=== PATIENT | male | born 1960 | race Caucasian/White ===

== ENCOUNTER 2021-08-16 06:56 | Emergency (ER) | payer MEDICAID, SELFPAY ==
--- NOTE | ~2021-08-16 | CT_ITS ---
EXAMINATION: CT ABDOMEN AND PELVIS WITHOUT CONTRAST CLINICAL INFORMATION: Constipation. Lower abdominal pain. COMPARISON: None TECHNIQUE: Multidetector volumetric imaging was performed from the superior aspect of the liver through the pubic symphysis. Sagittal and coronal reformatted images were obtained on the technologist's workstation. This CT examination was performed using dose optimization techniques as appropriate, variously including the following: *Automated exposure control *Adjustment of mA and/or kV according to patient size (this includes techniques or standardized protocols for targeted exams where dose is matched to indication/reason for exam; i.e. extremities or head) *Use of iterative reconstruction technique DLP: 512 mGy-cm FINDINGS: LUNG BASES: The visualized lung bases are unremarkable. LIVER, GALLBLADDER, AND BILIARY TREE: The liver is normal in size, shape, and attenuation. No focal hepatic lesion or biliary ductal dilatation is present. The gallbladder is filled with stones and sludge. No wall thickening or pericholecystic fluid. There is some irregularity of the gallbladder wall suggestive of possible partial calcification. PANCREAS: Unremarkable. SPLEEN: Unremarkable. ADRENAL GLANDS: Unremarkable. KIDNEYS AND URETERS: The kidneys are normal in size, shape, and attenuation. No hydronephrosis, hydroureter, or calculi seen. No perinephric stranding. BLADDER: Unremarkable. GASTROINTESTINAL TRACT: The stomach is unremarkable. Normal caliber of the small bowel. There is no obstruction. No colonic wall thickening or acute inflammation. No significant abnormal colonic stool burden. Normal appendix. No free air or free fluid. ABDOMINAL WALL: No significant hernia is appreciated. LYMPH NODES: Normal. VASCULAR: Normal caliber aorta with mild atherosclerotic calcification. PELVIC VISCERA: The prostate and seminal vesicles are unremarkable. OSSEOUS STRUCTURES: Are degenerative changes throughout the spine. No prior for comparison. Bilateral L5 pars defects with grade 1 anterolisthesis of L5 on S1 and vacuum disc phenomenon has a chronic appearance. There is mild height loss of the T9 vertebral body with irregularity of the superior endplate. This is of uncertain chronicity. CT/CT abdomen pelvis wo con IMPRESSION: No acute finding in the abdomen or pelvis. No inflammatory change. No abnormal significant colonic stool burden. Mild compression deformity of the T9 vertebral body with superior endplate irregularity. This is of uncertain chronicity. This could represent acute or subacute compression deformity. Cholelithiasis with gallbladder sludge. Some irregularity of the wall is also suggested. No acute inflammatory changes of the gallbladder are seen. This could be evaluated with nonemergent right upper quadrant ultrasound.
[2021-08-16 07:17] VITALS: BP 126/85; PULSE 97; RESP 19; TEMP 36.6; O2SAT 99; BMI 24.4
--- NOTE | 2021-08-16 08:03 | ED.ALCOHOL ---
HPI - Alcohol General Chief Complaint: General Medical Stated Complaint: seeking detox Time Seen by Provider: 08/16/21 08:02 Source: patient Mode of arrival: ambulatory Limitations: no limitations History of Present Illness MD complaint: alcohol dependence and desires rehab Last drink: Days (ago) Chronic alcohol use: Yes Previous visits for alcohol intoxication: No Recent trauma: No Associated symptoms: other (constipation, and running out of oxycodone - needs detox for both) Treatments prior to arrival: none Related Data Previous Rx's Medication Instructions Recorded buprenorphine 8 mg-naloxone 2 mg 1 film BUCCAL DAILY 4 Days #4 ea 08/16/21 sublingual film (Suboxone) Allergies Allergy/AdvReac Type Severity Reaction Status Date / Time No Known Allergies Allergy Verified 08/16/21 08:02 Review of Systems Review of Systems: Constitutional : No Weight loss, No Fever, No Chills, No Fatigue, No Malaise ENT/Mouth : No sore throat, No Rhinorrhea Eyes: No Eye Pain, No Swelling, No Redness Cardiovascular : No Chest Pain, No SOB, No Dyspnea on Exertion, No Orthopnea, No Edema, No Palpitations Respiratory : No Cough, No Sputum, No Wheezing Gastrointestinal : No Nausea, No Vomiting, No Diarrhea, pos Constipation, No abdominal Pain, No Hematochezia, No Melena Genitourinary : No Dysuria, No Urinary Frequency, No Hematuria, Musculoskeletal : No joint pain, No Myalgias, No Joint Swelling Skin : No Skin Lesions, No rash Neuro : No Weakness, No Numbness, No Dizziness, No Headache Psych : pos Anxiety/Panic, No Depression Heme/Lymph: No Bruising, No Bleeding,No Lymphadenopathy Endocrine : No Polyuria, No Polydipsia All other systems reviewed and are negative [facility] Past Medical History Attestation statement: The following information was validated with the patient. Medical History Alcoholism Compression fracture of lumbar vertebra Opiate dependence Rotator cuff injury TBI (traumatic brain injury) Social History Social History (Updated 08/16/21 @ 08:32 by Cinda Samayoa DO) Alcohol intake: current Patient Tobacco Use Status: Tobacco use Unknown Substance Use Type: Opiates and Prescription Drugs Advance Directives: No Physical Exam Vital Signs: Vital Signs: Last Vital Signs Temp 98 F 08/16/21 07:17 Pulse 97 08/16/21 07:17 Resp 19 08/16/21 07:17 BP 126/85 08/16/21 07:17 Pulse Ox 99 08/16/21 07:17 Body Mass Index 24.4 Appearance: Alert. Oriented X3. No acute distress. Anxious Eyes: Pupils equal, round and reactive to light. ENT: Pharynx normal. Neck: Normal inspection. Neck supple. CVS: Normal heart rate and rhythm. Pulses normal. Respiratory: No respiratory distress. Breath sounds normal. Abdomen: Soft and nontender. Skin: Skin warm and dry. Normal skin color. Normal skin turgor. Extremities: No lower extremity edema. No calf ttp Neuro: Oriented X 3. No motor deficit. No sensory deficit. Course Course Course Narrative: Patient placed in physician observation at 1205pm. The indication for observation is that the patient needs more time to for possible detox placement for opiate and ETOH abuse. At this time the patient is well developed well nourished, lungs clear, CV RRR, abd nontender, neuro is intact. no signs of withdrawal at this time Physician observation ended at 309pm Patient seen and cleared by recovery team Plan is to follow up as outpatient. NAD, lungs clear, CV RRR, Abd nontender, Neuro intact. Disposition is for home. Detox will follow up with MDM - Alcohol MDM Narrative Medical decision making narrative: 61 yo male from [place] recently 2 years ago suffered a fall and was prescribed for 2 years 30mg oxy and 6mg xanax a day post trauma - he now is running out and notes dependence, also has drinking problem unsure if he is looking for detox. He c/o chronic constipation and lower abdominal pain. Will obtain labs and CT scan to r/o mass if negative will refer to recovery coaches. Lab Data Result diagrams: 08/16/21 09:04 08/16/21 09:04 Labs: Lab Results 08/16/21 08/16/21 08/16/21 Range/Units 08:20 09:04 09:04 WBC 5.9 (4.8-10.8) X10*3/uL RBC 3.14 L (4.60-5.80) X10*6/uL Hgb 11.4 L (14.0-18.0) g/dl Hct 33.3 L (42.0-52.0) % MCV 106.1 H (80.0-98.0) fL MCH 36.3 H (27.0-33.0) pg MCHC 34.2 (31.0-36.0) g/dl RDW 14.9 (11.0-16.0) % Plt Count 182 (160-400) X10*3/uL MPV 9.7 (9.4-12.4) fL Immature Gran % (Auto) 0.2 (0.0-0.4) % Neut % (Auto) 54.9 (45-73) % Lymph % (Auto) 35.1 (20-40) % [place] % (Auto) 8.0 (2-11) % Eos % (Auto) 1.5 (0-4) % Baso % (Auto) 0.3 (0-2) % Lymph # (Auto) 2.1 (1.2-4.9) X10*3/uL [place] # (Auto) 0.5 (0.1-1.2) X10*3/uL Eos # (Auto) 0.1 (0.0-0.4) X10*3/uL Baso # (Auto) 0.0 (0.0-0.2) X10*3/uL Abs Immat Gran (auto) 0.01 (0.00-0.03) X10*3/uL Absolute Neuts (auto) 3.23 (2.0-8.3) x10*3/uL Absolute Nucleated RBC 0.000 (0.0-0.012) X10*3/uL Nucleated RBC % (auto) 0.0 (0.0-0.2) /100WBC Sodium 136 (135-145) mmol/L Potassium 3.6 (3.3-5.1) mmol/L Chloride 102 (96-108) mmol/L Carbon Dioxide 23 (22-29) mmol/L Anion Gap 15 (12-20) BUN 5 L (9-16) mg/dL Creatinine 0.71 (0.5-1.4) mg/dL Estim Creat Clear Calc 126.6 Estimated GFR > 60 Random Glucose 110 (60-115) mg/dL Calcium 7.3 L (8.4-10.2) mg/dL Magnesium 1.2 L* (1.6-2.6) mg/dL Total Bilirubin 1.1 H (0.0-1.0) mg/dL Direct Bilirubin 0.5 (0.0-0.5) mg/dL AST 69 H (5-37) U/L ALT 37 (0-40) U/L Alkaline Phosphatase 70 (39-117) U/L Total Protein 7.0 (6.5-8.0) g/dL Albumin 3.7 (3.5-5.0) g/dL Lipase 47 (8-78) U/L Urine Opiates Screen (Not Detect) Urine Fentanyl Screen (Not Detect) Ur Barbiturates Screen (Not Detect) Ur Phencyclidine Scrn (Not Detect) Ur Amphetamines Screen (Not Detect) U Benzodiazepines Scrn (Not Detect) Urine Cocaine Screen (Not Detect) U Marijuana (THC) Screen (Not Detect) COVID-19 ([facility]) Negative (Negative) COVID-19 Clin Com See Note 08/16/21 Range/Units 09:04 WBC (4.8-10.8) X10*3/uL RBC (4.60-5.80) X10*6/uL Hgb (14.0-18.0) g/dl Hct (42.0-52.0) % MCV (80.0-98.0) fL MCH (27.0-33.0) pg MCHC (31.0-36.0) g/dl RDW (11.0-16.0) % Plt Count (160-400) X10*3/uL MPV (9.4-12.4) fL Immature Gran % (Auto) (0.0-0.4) % Neut % (Auto) (45-73) % Lymph % (Auto) (20-40) % [place] % (Auto) (2-11) % Eos % (Auto) (0-4) % Baso % (Auto) (0-2) % Lymph # (Auto) (1.2-4.9) X10*3/uL [place] # (Auto) (0.1-1.2) X10*3/uL Eos # (Auto) (0.0-0.4) X10*3/uL Baso # (Auto) (0.0-0.2) X10*3/uL Abs Immat Gran (auto) (0.00-0.03) X10*3/uL Absolute Neuts (auto) (2.0-8.3) x10*3/uL Absolute Nucleated RBC (0.0-0.012) X10*3/uL Nucleated RBC % (auto) (0.0-0.2) /100WBC Sodium (135-145) mmol/L Potassium (3.3-5.1) mmol/L Chloride (96-108) mmol/L Carbon Dioxide (22-29) mmol/L Anion Gap (12-20) BUN (9-16) mg/dL Creatinine (0.5-1.4) mg/dL Estim Creat Clear Calc Estimated GFR Random Glucose (60-115) mg/dL Calcium (8.4-10.2) mg/dL Magnesium (1.6-2.6) mg/dL Total Bilirubin (0.0-1.0) mg/dL Direct Bilirubin (0.0-0.5) mg/dL AST (5-37) U/L ALT (0-40) U/L Alkaline Phosphatase (39-117) U/L Total Protein (6.5-8.0) g/dL Albumin (3.5-5.0) g/dL Lipase (8-78) U/L Urine Opiates Screen POSITIVE H (Not Detect) Urine Fentanyl Screen Not Detected (Not Detect) Ur Barbiturates Screen Not Detected (Not Detect) Ur Phencyclidine Scrn Not Detected (Not Detect) Ur Amphetamines Screen Not Detected (Not Detect) U Benzodiazepines Scrn POSITIVE H (Not Detect) Urine Cocaine Screen Not Detected (Not Detect) U Marijuana (THC) Screen Not Detected (Not Detect) COVID-19 ([facility]) (Negative) COVID-19 Clin Com Discharge Plan Discharge Clinical Impression: Alcohol abuse, Hypomagnesemia Cholelithiasis Qualifiers: Cholelithiasis location: gallbladder Cholecystitis presence: without cholecystitis Biliary obstruction: without biliary obstruction Qualified Code(s): K80.20 - Calculus of gallbladder without cholecystitis without obstruction Opiate dependence Qualifiers: Substance use status: uncomplicated Qualified Code(s): F11.20 - Opioid dependence, uncomplicated Patient Disposition: Home, Self-Care Instructions: Abuse of Alcohol (ED), Hypomagnesemia (ED), Opioid Use Disorder (ED) Additional Instructions: return to ED for any worsening symptoms or concerns No acute finding in the abdomen or pelvis. No inflammatory change. No abnormal significant colonic stool burden. ? Mild compression deformity of the T9 vertebral body with superior endplate irregularity. This is of uncertain chronicity. This could represent acute or subacute compression deformity. ? Cholelithiasis with gallbladder sludge. Some irregularity of the wall is also suggested. No acute inflammatory changes of the gallbladder are seen. This could be evaluated with nonemergent right upper quadrant ultrasound.? OUTPATIENT WORKUP PLEASE FOLLOW UP WITH DETOX Prescriptions: New buprenorphine-naloxone [Suboxone] 8-2 mg film 1 film buccal DAILY 4 Days Qty: 4 RF: 0
[2021-08-16 08:48] LABS: COVID-19 Test Negative (Negative)
[2021-08-16 09:11] LABS: MANUAL DIFF FLAG NO
[2021-08-16 09:12] LABS: Basophils Percent Auto 0.3 % (0-2); Eosinophils Absolute Auto 0.1 X10*3/uL (0.0-0.4); Eosinophils Percent Auto 1.5 % (0-4); Hematocrit 33.3 % (42.0-52.0); Hemoglobin 11.4 g/dl (14.0-18.0); Imm Gran Abs Auto 0.01 X10*3/uL (0.00-0.03); Imm Gran Pct Auto 0.2 % (0.0-0.4); Lymphocytes Absolute Auto 2.1 X10*3/uL (1.2-4.9); Lymphocytes Percent Auto 35.1 % (20-40); Mean Corpuscular HGB Conc 34.2 g/dl (31.0-36.0); Mean Corpuscular Hemoglobin 36.3 pg (27.0-33.0); Mean Corpuscular Volume 106.1 fL (80.0-98.0); Mean Platelet Volume 9.7 fL (9.4-12.4); Monocytes Absolute Auto 0.5 X10*3/uL (0.1-1.2); Neutrophils Absolute Auto 3.23 x10*3/uL (2.0-8.3); Neutrophils Percent Auto 54.9 % (45-73); Platelet Count 182 X10*3/uL (160-400); Red Blood Count 3.14 X10*6/uL (4.60-5.80); Red Cell Distribution Width 14.9 % (11.0-16.0); White Blood Count 5.9 X10*3/uL (4.8-10.8)
[2021-08-16 09:30] LABS: Amphetamine Screen Urine Not Detected (Not Detect); Barbiturates, Urine Not Detected (Not Detect); Benzodiazepines Screen Urine POSITIVE (Not Detect); Cannabinoid Screen Urine Not Detected (Not Detect); Cocaine Screen Urine Not Detected (Not Detect); Fentanyl, urine Not Detected (Not Detect); Opiate Screen Urine POSITIVE (Not Detect); Phencyclidine Screen Urine Not Detected (Not Detect)
[2021-08-16 09:35] LABS: Alanine Aminotransferase 37 U/L (0-40); Albumin Level 3.7 g/dL (3.5-5.0); Alkaline Phosphatase 70 U/L (39-117); Anion Gap 15 (12-20); Aspartate Amino Transferase 69 U/L (5-37); Bilirubin Direct 0.5 mg/dL (0.0-0.5); Bilirubin Total 1.1 mg/dL (0.0-1.0); Blood Urea Nitrogen 5 mg/dL (9-16); Calcium 7.3 mg/dL (8.4-10.2); Carbon Dioxide 23 mmol/L (22-29); Chloride 102 mmol/L (96-108); Creatinine Clr Calc Pharmacy 126.6; Estimated Glomerular Filt Rate > 60; Glucose Random 110 mg/dL (60-115); Lipase 47 U/L (8-78); Magnesium 1.2 mg/dL (1.6-2.6); Potassium 3.6 mmol/L (3.3-5.1); Sodium 136 mmol/L (135-145)
[2021-08-16] MEDS: Folic Acid 1 MG TABLET PO (09:51)
[2021-08-16] MEDS: Magnesium Sulfate/H2O 2 GM/50 ML PIGGYBACK IV (09:52)
[2021-08-16] MEDS: Thiamine HCL 100 MG TABLET PO (09:52)
--- NOTE | 2021-08-16 13:03 | MHC.RECOVSUP ---
Recovery Support note: Patient is a 61 year old Greek speaking male who [place] [facility] due to alcohol and opioid use. This promotion writer met with patient and his brother to discuss substance use and treatment options. Patient reports he has been using 5-20mg of oxycodone daily and up to 6oz of liquor daily. Brother who has been with patient for the past ten days reports this is accurate. Patient reports a desire to stop using entirely. Patient denies history of alcohol withdrawal symptoms however he reports he begins to feel jittery when he doesn't take oxycodone for a period of time. Discussed inpatient detox and medications for opioid use disorder with patient. Explained to patient that the safest option is to go to detox for his withdrawal to be managed and that he would be able to start Suboxone while in treatment. Patient acknowledged and is agreeable. This promotion writer addressed questions that patient and his brother had. Patient has been referred to [facility] and this promotion writer awaits follow up regarding whether patient has been accepted for treatment. Discussed case with patient's RN and ED provider.
--- NOTE | 2021-08-16 14:11 | PC.NURSE ---
ALERT, SPEECH CLEAR, DECLINED LUNCH, DRINKING FLUIDS, FRIEND SITTING W PT AND MAURILIO FROM CARE TEAM WORKING ON DETOX BED
--- NOTE | 2021-08-16 15:49 | MHC.RECOVSUP ---
Recovery Support Note: Patient completed intake with [facility] and accepted for admission. Patient to transport to facility via private car with brother.
== END 2021-08-16 15:43 | disposition home or self-care (01) ==
PROVIDERS: Emergency Provider Emergency Medicine
DX: K80.20 Calculus of gallbladder without cholecystitis without obstruction (principal); F10.10 Alcohol abuse, uncomplicated; F11.20 Opioid dependence, uncomplicated; E83.42 Hypomagnesemia; Z20.822 Contact with and (suspected) exposure to COVID-19; Z87.820 Personal history of traumatic brain injury
CPT/HCPCS: 36415; 74176; 80048; 80076; 80307; 83690; 83735; 85025; 87635; 96365; 96366; 99283; 99284; J3475

== ENCOUNTER → 2021-08-30 13:15 | Outpatient (BNVA) | payer OTHER, SELFPAY | PROVIDERS: Visit Provider Internal Medicine | DX: F11.20 Opioid dependence, uncomplicated (principal); F10.10 Alcohol abuse, uncomplicated; F13.20 Sedative, hypnotic or anxiolytic dependence, uncomplicated; Z51.81 Encounter for therapeutic drug level monitoring; Z79.899 Other long term (current) drug therapy | CPT/HCPCS: 80305 ==

== ENCOUNTER 2021-09-13 15:09 | Observation (INO) | payer OTHER, SELFPAY ==
--- NOTE | ~2021-09-13 | CT_ITS ---
EXAMINATION: CT HEAD WITHOUT CONTRAST CLINICAL INFORMATION: Hypertension and headaches. COMPARISON: No relevant prior imaging. TECHNIQUE: Contiguous axial imaging was performed from the skull base to vertex without intravenous administration of contrast. This CT examination was performed using dose optimization techniques as appropriate, variously including the following: *Automated exposure control *Adjustment of mA and/or kV according to patient size (this includes techniques or standardized protocols for targeted exams where dose is matched to indication/reason for exam; i.e. extremities or head) *Use of iterative reconstruction technique DLP: 774 mGy-cm FINDINGS: There is no acute intracranial hemorrhage or abnormal extra-axial collection. No intracranial mass effect or midline shift. Lateral and third ventricles are normal. No hydrocephalus. Burrell-white matter differentiation is preserved and there is no evidence of acute territorial infarct. The calvarium and skull base are intact. Mastoid air cells and middle ear cavities are well aerated. No active paranasal sinus disease. CT/CT head/brain wo con IMPRESSION: Normal CT scan of the head.
[2021-09-13 16:10] VITALS: BP 182/98; PULSE 85; RESP 17; O2SAT 98; BMI 25.7
--- NOTE | 2021-09-13 18:29 | ED_ITS ---
HPI - General Adult General Chief complaint: General Medical Stated complaint: High Bp Time Seen by Provider: 09/13/21 18:28 Source: patient Mode of arrival: ambulatory Limitations: no limitations History of Present Illness HPI narrative: complicated history last xanax was reportedly on 09/01 and reports no ETOH since before then but comes in with tremors not feeling well sweats tongue fasciculations and HTN complaint: HTN Onset (ago): day(s) (2) Location: head and chest Severity: mild Quality: aching Pain Consistency: intermittent Relieving factors: none Exacerbating factors: other (just started venlafaxine 37.5mg on 09/07 doesn't feel good on it) Associated symptoms: confusion and other (feels his vision is blurry) Treatments prior to arrival: none Related Data Home Medications Medication Instructions Recorded Confirmed clonidine HCl 0.1 mg tablet 1 tab PO BEDTIME 09/13/21 09/13/21 folic acid 1 mg tablet 1 tab PO DAILY 09/13/21 09/13/21 gabapentin 300 mg capsule 1 cap PO BID 09/13/21 09/13/21 ibuprofen 200 mg tablet 200 mg PO Q6H PRN 09/13/21 09/13/21 thiamine HCl (vitamin B1) 100 mg 1 tab PO DAILY 09/13/21 09/13/21 tablet (Vitamin B-1) venlafaxine 37.5 mg 1 cap PO DAILY 09/13/21 09/13/21 capsule,extended release 24 hr Allergies Allergy/AdvReac Type Severity Reaction Status Date / Time No Known Allergies Allergy Verified 09/13/21 16:10 Review of Systems Review of Systems: Constitutional : No Weight loss, No Fever, No Chills, No Fatigue, No Malaise ENT/Mouth : No sore throat, No Rhinorrhea Eyes: No Eye Pain, No Swelling, No Redness Cardiovascular : pos Chest Pain, No SOB, No Dyspnea on Exertion, No Orthopnea, No Edema, No Palpitations Respiratory : No Cough, No Sputum, No Wheezing Gastrointestinal : No Nausea, No Vomiting, No Diarrhea, No Constipation, No abdominal Pain, No Hematochezia, No Melena Genitourinary : No Dysuria, No Urinary Frequency, No Hematuria, Musculoskeletal : No joint pain, No Myalgias, No Joint Swelling Skin : No Skin Lesions, No rash Neuro : No Weakness, pos Numbness, pos Dizziness, pos Headache Psych : No Anxiety/Panic, No Depression Heme/Lymph: No Bruising, No Bleeding,No Lymphadenopathy Endocrine : No Polyuria, No Polydipsia All other systems reviewed and are negative [facility] Past Medical History Attestation statement: The following information was validated with the patient. Medical History Alcohol abuse Alcoholism Anxiety Compression fracture of lumbar vertebra Moderate benzodiazepine use disorder Neuropathy Opiate dependence Opioid use disorder Rotator cuff injury TBI (traumatic brain injury) Social History Social History (Updated 09/13/21 @ 18:53 by Cinda Samayoa DO) Alcohol intake: former Patient Tobacco Use Status: Tobacco use Unknown Substance Use Type: Opiates and Prescription Drugs Advance Directives: No Advance Directives Information Provided: Yes Physical Exam Vital Signs: Vital Signs: Last Vital Signs Temp 99.8 F 09/13/21 20:27 Pulse 75 09/13/21 21:51 Resp 16 09/13/21 20:27 BP 164/102 H 09/13/21 21:51 Pulse Ox 98 09/13/21 20:27 Body Mass Index 25.7 Appearance: Alert. Oriented X3. No acute distress. Eyes: Pupils equal, round and reactive to light. Tongue fasciculations noted ENT: Pharynx normal. Neck: Normal inspection. Neck supple. CVS: Normal heart rate and rhythm. Pulses normal. Respiratory: No respiratory distress. Breath sounds normal. Abdomen: Soft and nontender. Skin: Skin warm and clammy pale skin color. Normal skin turgor. Extremities: No lower extremity edema. No calf ttp Neuro: Oriented X 3. No motor deficit. No sensory deficit. slight tremor noted both hands with movements, no drift Course Course Course Narrative: still positive for benzodiazepines adamant he is not taking them - I am not sure why he would be testing positive on day 12 or having issues with withdrawal 12 days out especially even with a taper beforehand IV labetalol for HTN ordered if that does not work I am going to order I ativan as I am suspicous that this is a benzodiazepine withdrawal no sign change in BP - IV ativan ordered repeat IV labetalol - will admit for uncontrolled HTN better response to second dose of IV labetalol will admit for further manag ement Medical Decision Making [facility] Narrative Medical decision making narrative: 61 yo male with hx of traumatic injuries and TBI as well as benzodiazepine/opiate use disorder along with ETOH abuse - he is here not feeling well with HTN his constellation of symptoms have me concerned for ETOH/benzo withdrawal but he is adamant he is not using. At this time labs, IVF, EKG CT head. Dispo per results and observations. Lab Data Result diagrams: 09/13/21 19:50 09/13/21 19:50 Labs: Lab Results 09/13/21 09/13/21 09/13/21 Range/Units 19:50 19:50 19:50 WBC 7.9 (4.8-10.8) X10*3/uL RBC 3.93 L D (4.60-5.80) X10*6/uL Hgb 13.3 L (14.0-18.0) g/dl Hct 38.1 L (42.0-52.0) % MCV 96.9 (80.0-98.0) fL MCH 33.8 H (27.0-33.0) pg MCHC 34.9 (31.0-36.0) g/dl RDW 11.7 (11.0-16.0) % Plt Count 276 D (160-400) X10*3/uL MPV 10.9 (9.4-12.4) fL Immature Gran % (Auto) 0.4 (0.0-0.4) % Neut % (Auto) 60.0 (45-73) % Lymph % (Auto) 30.9 (20-40) % [place] % (Auto) 6.9 (2-11) % Eos % (Auto) 1.3 (0-4) % Baso % (Auto) 0.5 (0-2) % Lymph # (Auto) 2.4 (1.2-4.9) X10*3/uL [place] # (Auto) 0.5 (0.1-1.2) X10*3/uL Eos # (Auto) 0.1 (0.0-0.4) X10*3/uL Baso # (Auto) 0.0 (0.0-0.2) X10*3/uL Abs Immat Gran (auto) 0.03 (0.00-0.03) X10*3/uL Absolute Neuts (auto) 4.7 (2.0-8.3) x10*3/uL Absolute Nucleated RBC 0.000 (0.0-0.012) X10*3/uL Nucleated RBC % (auto) 0.0 (0.0-0.2) /100WBC Sodium 131 L (135-145) mmol/L Potassium 4.3 (3.3-5.1) mmol/L Chloride 95 L (96-108) mmol/L Carbon Dioxide 24 (22-29) mmol/L Anion Gap 16 (12-20) BUN 10 D (9-16) mg/dL Creatinine 0.72 (0.5-1.4) mg/dL Estim Creat Clear Calc 121.2 Estimated GFR > 60 Random Glucose 127 H (60-115) mg/dL Calcium 9.8 D (8.4-10.2) mg/dL Magnesium 1.3 L* (1.6-2.6) mg/dL Total Bilirubin 0.6 (0.0-1.0) mg/dL Direct Bilirubin 0.3 (0.0-0.5) mg/dL AST 27 D (5-37) U/L ALT 32 (0-40) U/L Alkaline Phosphatase 62 (39-117) U/L Troponin I High Sens 10.9 (<3.5-35.0) ng/L Total Protein 7.8 (6.5-8.0) g/dL Albumin 4.3 (3.5-5.0) g/dL Lipase 96 H (8-78) U/L Urine Opiates Screen (Not Detect) Urine Fentanyl Screen (Not Detect) Ur Barbiturates Screen (Not Detect) Ur Phencyclidine Scrn (Not Detect) Ur Amphetamines Screen (Not Detect) U Benzodiazepines Scrn (Not Detect) Urine Cocaine Screen (Not Detect) U Marijuana (THC) Screen (Not Detect) Ethyl Alcohol mg/dL COVID-19 ([facility]) (Negative) COVID-19 Clin Com 09/13/21 09/13/21 09/13/21 Range/Units 19:50 19:50 20:25 WBC (4.8-10.8) X10*3/uL RBC (4.60-5.80) X10*6/uL Hgb (14.0-18.0) g/dl Hct (42.0-52.0) % MCV (80.0-98.0) fL MCH (27.0-33.0) pg MCHC (31.0-36.0) g/dl RDW (11.0-16.0) % Plt Count (160-400) X10*3/uL MPV (9.4-12.4) fL Immature Gran % (Auto) (0.0-0.4) % Neut % (Auto) (45-73) % Lymph % (Auto) (20-40) % [place] % (Auto) (2-11) % Eos % (Auto) (0-4) % Baso % (Auto) (0-2) % Lymph # (Auto) (1.2-4.9) X10*3/uL [place] # (Auto) (0.1-1.2) X10*3/uL Eos # (Auto) (0.0-0.4) X10*3/uL Baso # (Auto) (0.0-0.2) X10*3/uL Abs Immat Gran (auto) (0.00-0.03) X10*3/uL Absolute Neuts (auto) (2.0-8.3) x10*3/uL Absolute Nucleated RBC (0.0-0.012) X10*3/uL Nucleated RBC % (auto) (0.0-0.2) /100WBC Sodium (135-145) mmol/L Potassium (3.3-5.1) mmol/L Chloride (96-108) mmol/L Carbon Dioxide (22-29) mmol/L Anion Gap (12-20) BUN (9-16) mg/dL Creatinine (0.5-1.4) mg/dL Estim Creat Clear Calc Estimated GFR Random Glucose (60-115) mg/dL Calcium (8.4-10.2) mg/dL Magnesium (1.6-2.6) mg/dL Total Bilirubin (0.0-1.0) mg/dL Direct Bilirubin (0.0-0.5) mg/dL AST (5-37) U/L ALT (0-40) U/L Alkaline Phosphatase (39-117) U/L Troponin I High Sens (<3.5-35.0) ng/L Total Protein (6.5-8.0) g/dL Albumin (3.5-5.0) g/dL Lipase (8-78) U/L Urine Opiates Screen Not Detected (Not Detect) Urine Fentanyl Screen Not Detected (Not Detect) Ur Barbiturates Screen Not Detected (Not Detect) Ur Phencyclidine Scrn Not Detected (Not Detect) Ur Amphetamines Screen Not Detected (Not Detect) U Benzodiazepines Scrn POSITIVE H (Not Detect) Urine Cocaine Screen Not Detected (Not Detect) U Marijuana (THC) Screen Not Detected (Not Detect) Ethyl Alcohol < 10 mg/dL COVID-19 ([facility]) Negative (Negative) COVID-19 Clin Com See Note ECG Data Attestation: I personally reviewed and interpreted this ECG as follows: Interpretation: Rate: 80 Rhythm: NSR Sigurd: left Normal P waves. Normal VANESSA. Normal QRS complex. ST T wave : nonspecific no WILLIAM qTC: normal prior studies: no acute ischemia The study has been interpreted contemporaneously by me. . Critical Care Time Critical Care Time Critical Care Time: Yes Total Critical Care Time: 35 Attestation: 2 dose of IV HTNive medications, IV ativan I attest to this time spent taking care of the patient Discharge Plan Discharge Clinical Impression: Hypertension, uncontrolled, Hypomagnesemia Patient Disposition: Admitted As Inpatient
--- NOTE | 2021-09-13 18:40 | ECG_ITS ---
Test Reason : BLOOD PRESSURE Blood Pressure : / mmHG Vent. Rate : 080 BPM Atrial Rate : 080 BPM P-R Int : 148 ms QRS Dur : 084 ms QT Int : 402 ms P-R-T Axes : 025 -13 -05 degrees QTc Int : 463 ms Normal sinus rhythm Normal ECG No previous ECGs available Referred By: Cinda Samayoa Electronically Signed By:CONOR LEUNG MD
[2021-09-13 19:54] LABS: MANUAL DIFF FLAG NO
[2021-09-13] MEDS: 0.9 % Sodium Chloride 1,000 ML 999 ML IVCONT (19:54)
[2021-09-13 19:56] LABS: Hematocrit 38.1 % (42.0-52.0); Hemoglobin 13.3 g/dl (14.0-18.0); Imm Gran Pct Auto 0.4 % (0.0-0.4); Mean Corpuscular HGB Conc 34.9 g/dl (31.0-36.0); Mean Corpuscular Hemoglobin 33.8 pg (27.0-33.0); Mean Corpuscular Volume 96.9 fL (80.0-98.0); Mean Platelet Volume 10.9 fL (9.4-12.4); Platelet Count 276 X10*3/uL (160-400); Red Blood Count 3.93 X10*6/uL (4.60-5.80); Red Cell Distribution Width 11.7 % (11.0-16.0); White Blood Count 7.9 X10*3/uL (4.8-10.8)
[2021-09-13 19:57] LABS: Basophils Percent Auto 0.5 % (0-2); Eosinophils Absolute Auto 0.1 X10*3/uL (0.0-0.4); Eosinophils Percent Auto 1.3 % (0-4); Imm Gran Abs Auto 0.03 X10*3/uL (0.00-0.03); Lymphocytes Absolute Auto 2.4 X10*3/uL (1.2-4.9); Lymphocytes Percent Auto 30.9 % (20-40); Monocytes Absolute Auto 0.5 X10*3/uL (0.1-1.2); Monocytes Percent Auto 6.9 % (2-11); Neutrophils Absolute Auto 4.7 x10*3/uL (2.0-8.3)
[2021-09-13 20:10] LABS: COVID-19 Test Negative (Negative)
[2021-09-13 20:14] LABS: Ethanol < 10 mg/dL
[2021-09-13 20:15] LABS: Troponin-I High Sensitivity 10.9 ng/L (<3.5-35.0)
[2021-09-13 20:25] LABS: Alanine Aminotransferase 32 U/L (0-40); Albumin Level 4.3 g/dL (3.5-5.0); Alkaline Phosphatase 62 U/L (39-117); Anion Gap 16 (12-20); Aspartate Amino Transferase 27 U/L (5-37); Bilirubin Direct 0.3 mg/dL (0.0-0.5); Bilirubin Total 0.6 mg/dL (0.0-1.0); Blood Urea Nitrogen 10 mg/dL (9-16); Calcium 9.8 mg/dL (8.4-10.2); Carbon Dioxide 24 mmol/L (22-29); Chloride 95 mmol/L (96-108); Creatinine Clr Calc Pharmacy 121.2; Estimated Glomerular Filt Rate > 60; Glucose Random 127 mg/dL (60-115); Lipase 96 U/L (8-78); Magnesium 1.3 mg/dL (1.6-2.6); Potassium 4.3 mmol/L (3.3-5.1); Sodium 131 mmol/L (135-145); Total Protein 7.8 g/dL (6.5-8.0)
[2021-09-13 20:27] VITALS: BP 211/107; PULSE 72; RESP 16; TEMP 37.7; O2SAT 98
[2021-09-13 20:50] LABS: Amphetamine Screen Urine Not Detected (Not Detect); Barbiturates, Urine Not Detected (Not Detect); Benzodiazepines Screen Urine POSITIVE (Not Detect); Cannabinoid Screen Urine Not Detected (Not Detect); Cocaine Screen Urine Not Detected (Not Detect); Fentanyl, urine Not Detected (Not Detect); Opiate Screen Urine Not Detected (Not Detect); Phencyclidine Screen Urine Not Detected (Not Detect)
[2021-09-13] MEDS: Magnesium Sulfate/H2O 2 GM/50 ML PIGGYBACK IV (20:57)
[2021-09-13 20:58] VITALS: BP 196/104; PULSE 78
[2021-09-13] MEDS: Labetalol HCL 100 MG/20 ML VIAL 10 MG IVPUSH ×2 (20:58→21:51)
[2021-09-13] MEDS: LORazepam 2 MG/ML VIAL 1 MG IVPUSH (21:17)
[2021-09-13 21:51] VITALS: BP 164/102; PULSE 75
--- NOTE | 2021-09-13 22:03 | PHA.MEDREC ---
Pharmacy Consult ? Medication Reconciliation Pharmacy has completed the medication reconciliation. Spoke with patient in the ED, patient had all of his medication bottles with him.
[2021-09-13 23:30] VITALS: BP 157/91; PULSE 70; RESP 12; TEMP 36.7; O2SAT 97
--- NOTE | 2021-09-13 23:31 | PM.IMHP ---
History of Present Illness Date of Service: 09/13/21 Chief Complaint: elevated bp this is a 89-year-old male with history of back injury on opioids, appearing repaired addiction and benzo diction recently discharged from detox rehab presents to the hospital hypertension. patient reports that he has a blood pressure monitor at home and ever since he came out of rehab he was told to check his blood pressure daily abdomen showed he is not withdrawing. He reports that he was feeling off today, overall generally not well subjective blood pressure and was 177/ 111 as well as 185/110. His sisters at bedside also corroborated his story. Patient reports lightheadedness, he reports a right-sided pounding like intermittent chest pain that lasted few seconds and resolved spontaneously. He also had a headache earlier that has not resolved, he has chronic tingling in his hands and toes from history of he otherwise denies any palpitations, no abdominal pain nausea or vomiting, no diarrhea constipation, no urinary symptoms and no lower extremity edema. he reports that his blood pressure at home usually runs between 130-140 systolic, and 80 to 90s diastolic. on arrival to the ED patient's BP was initially 182/98 that went up to 211/107, patient was given 2 doses of 10 mg of IV labetalol with blood pressure improving to 164/102. Patient appears anxious about his blood pressure he keeps checking monitor. Labs are significant for WBC count 7.9, hemoglobin of 13.3, sodium of 131, magnesium of 1.3, UDS positive for benzodiazepines, alcohol negative. Patient adamantly denies using any benzodiazepines in the last 12 daysand has not drank alcohol for over 1 month. Sister at bedside confirmed versus and reports that they have been with him for 24 hours a day and have not seen him use alcohol or any benzodiazepines, Or opioids. Given his hypertension, ED physician was concerned about benzo withdrawals or 4 patient was given 1 dose of IV Ativan, and will be treated for observation Review of Systems Review of Systems: Yes all other systems are reviewed and are negative [facility] Medical History Alcohol abuse Alcoholism Anxiety Compression fracture of lumbar vertebra Moderate benzodiazepine use disorder Neuropathy Opiate dependence Opioid use disorder Rotator cuff injury TBI (traumatic brain injury) Social History Alcohol intake: former Patient Tobacco Use Status: Tobacco use Unknown Substance Use Type: Opiates and Prescription Drugs Advance Directives: No Advance Directives Information Provided: Yes Meds Allergies Allergy/AdvReac Type Severity Reaction Status Date / Time No Known Allergies Allergy Verified 09/13/21 16:10 Active Medications: Current Medications Pharmacy Consult (Consult Rx Perform Med Rec) 1 each MISCELLANE ONCE PRN PRN Reason: Consult order Home Medications Medication Instructions Recorded Confirmed Last Taken Type clonidine HCl 0.1 mg tablet 1 tab PO BEDTIME 09/13/21 09/13/21 09/12/21 History folic acid 1 mg tablet 1 tab PO DAILY 09/13/21 09/13/21 09/13/21 History gabapentin 300 mg capsule 1 cap PO BID 09/13/21 09/13/21 09/13/21 History ibuprofen 200 mg tablet 200 mg PO Q6H PRN 09/13/21 09/13/21 Unknown History thiamine HCl (vitamin B1) 100 mg 1 tab PO DAILY 09/13/21 09/13/21 09/13/21 History tablet (Vitamin B-1) venlafaxine 37.5 mg 1 cap PO DAILY 09/13/21 09/13/21 09/13/21 History capsule,extended release 24 hr Physical Exam Vital Signs and Narrative: Vital Signs: Last Vital Signs Temp 99.8 F 09/13/21 20:27 Pulse 75 09/13/21 21:51 Resp 16 09/13/21 20:27 BP 164/102 H 09/13/21 21:51 Pulse Ox 98 09/13/21 20:27 Body Mass Index 25.7 Const: General: cooperative and no acute distress Orientation/consciousness: patient oriented x3 Eyes: General: appearance normal, both eyes and all related structures Pupils: Equal, round and reactive pupils present Resp: Effort & Inspection: normal respiratory effort Auscultation: clear to auscultation bilaterally Cardio: Rate: regular rate Rhythm: regular rhythm GI: Palpation (GI): Soft to palpation Auscultation: normal bowel sounds Skin: General skin exam: no rashes or lesions noted Neuro: General: patient oriented x3 Cranial nerves: Yes Equal, round and reactive pupils present Cognition (Neuro): normal cognition Extrem: General: Yes normal to inspection and Yes no pedal edema Psych: Other: appears anxious Results Labs CBC and Chem 7: 09/13/21 19:50 09/13/21 19:50 Labs: Laboratory Results - last 24 hr 09/13/21 09/13/21 09/13/21 19:50 19:50 19:50 MCV 96.9 MCH 33.8 H MCHC 34.9 RDW 11.7 Plt Count 276 D MPV 10.9 Immature Gran % (Auto) 0.4 Neut % (Auto) 60.0 Lymph % (Auto) 30.9 Dillingham % (Auto) 6.9 Eos % (Auto) 1.3 Baso % (Auto) 0.5 Lymph # (Auto) 2.4 Dillingham # (Auto) 0.5 Eos # (Auto) 0.1 Baso # (Auto) 0.0 Abs Immat Gran (auto) 0.03 Absolute Neuts (auto) 4.7 Absolute Nucleated RBC 0.000 Nucleated RBC % (auto) 0.0 Anion Gap 16 Estim Creat Clear Calc 121.2 Estimated GFR > 60 Random Glucose 127 H Calcium 9.8 D Magnesium 1.3 L* Total Bilirubin 0.6 Direct Bilirubin 0.3 AST 27 D ALT 32 Alkaline Phosphatase 62 Troponin I High Sens 10.9 Total Protein 7.8 Albumin 4.3 Lipase 96 H Urine Opiates Screen Urine Fentanyl Screen Ur Barbiturates Screen Ur Phencyclidine Scrn Ur Amphetamines Screen U Benzodiazepines Scrn Urine Cocaine Screen U Marijuana (THC) Screen Ethyl Alcohol COVID-19 ([facility]) COVID-19 Clin Com 09/13/21 09/13/21 09/13/21 19:50 19:50 20:25 MCV MCH MCHC RDW Plt Count MPV Immature Gran % (Auto) Neut % (Auto) Lymph % (Auto) Dillingham % (Auto) Eos % (Auto) Baso % (Auto) Lymph # (Auto) [place]illingham # (Auto) Eos # (Auto) Baso # (Auto) Abs Immat Gran (auto) Absolute Neuts (auto) Absolute Nucleated RBC Nucleated RBC % (auto) Anion Gap Estim Creat Clear Calc Estimated GFR Random Glucose Calcium Magnesium Total Bilirubin Direct Bilirubin AST ALT Alkaline Phosphatase Troponin I High Sens Total Protein Albumin Lipase Urine Opiates Screen Not Detected Urine Fentanyl Screen Not Detected Ur Barbiturates Screen Not Detected Ur Phencyclidine Scrn Not Detected Ur Amphetamines Screen Not Detected U Benzodiazepines Scrn POSITIVE H Urine Cocaine Screen Not Detected U Marijuana (THC) Screen Not Detected Ethyl Alcohol < 10 COVID-19 ([facility]) Negative COVID-19 Clin Com See Note Imaging Radiologist's Impressions: Impressions Head CT 09/13/21 18:44 IMPRESSION: Normal CT scan of the head. Assessment and Plan (1) Hypertension, uncontrolled: Status: Acute (2) Hypomagnesemia: Status: Acute (3) Moderate benzodiazepine use disorder: Status: Acute this is a 61-year-old male with no history of hypertension presents to the hospital with hypertensive urgency # hypertensive urgency - unclear etiology, patient denies any History of hypertension or ever being on antihypertensives - possibly secondary to bands ofuse although reports has not used any benzos in about 12 days. - UDS is positive for benzodiazepines although reports last use over 12 days ago - no evidence of alcohol use or withdrawal - patient received 2 IV doses of labetalol with blood pressure improving - reviewing his blood pressure readings at home showed bleed pees around 130s over 90s - at this time will admit for observation - patient will need outpatient follow-up with PCP for workup of hypertension and starting antihypertensives # history of opioid as well as benzodiazepine use - patient and sister adamantly report last use over 12 days ago - At this time will monitor, if he continues to be hypertensive, have a high CIWA score will consult care team and start him on phenobarb protocol # hypomagnesemia - repleted - follow mag level DVT prophylaxis: Lovenox Quality Stroke Does the patient have a stroke diagnosis?: No VTE Prior VTE?: No VTE Risk Level:: Medical - moderate - high VTE Device Contraindication: Treatment Not Indicated VTE Drug Contraindication: N/A - Med Ordered
[2021-09-14 00:23] VITALS: BP 172/98; PULSE 70; RESP 20; O2SAT 97
[2021-09-14] MEDS: Enoxaparin Sodium 40 MG/0.4 ML SYRINGE SUBCUT (01:03)
[2021-09-14 01:04] VITALS: BP 172/99; PULSE 74
[2021-09-14] MEDS: 0.9 % Sodium Chloride Flush 3 ML SYRINGE IVFLUSH ×2 (01:04→09:12)
[2021-09-14] MEDS: cloNIDine HCL 0.1 MG TABLET PO (01:04)
--- NOTE | 2021-09-14 02:01 | PC.NURSE ---
This Rn took over care at 0000, patient alert and oriented, denies pain at this time. BP elevated at 172/99, hr 74, scheduled clonodine 0.1mg administered. Dr. Luna notified of elevated bp, continue to monitor at this time.
[2021-09-14] MEDS: Acetaminophen 325 MG TABLET 650 MG PO (02:12)
[2021-09-14 04:00] VITALS: BP 136/81; PULSE 62; RESP 16; TEMP 36.7; O2SAT 97
[2021-09-14 05:01] LABS: MANUAL DIFF FLAG NO
[2021-09-14 05:05] LABS: Basophils Absolute Auto 0.1 X10*3/uL (0.0-0.2); Basophils Percent Auto 0.7 % (0-2); Eosinophils Absolute Auto 0.2 X10*3/uL (0.0-0.4); Eosinophils Percent Auto 2.5 % (0-4); Hematocrit 33.6 % (42.0-52.0); Hemoglobin 11.6 g/dl (14.0-18.0); Imm Gran Abs Auto 0.02 X10*3/uL (0.00-0.03); Imm Gran Pct Auto 0.3 % (0.0-0.4); Lymphocytes Absolute Auto 2.8 X10*3/uL (1.2-4.9); Lymphocytes Percent Auto 38.2 % (20-40); Mean Corpuscular HGB Conc 34.5 g/dl (31.0-36.0); Mean Corpuscular Hemoglobin 33.7 pg (27.0-33.0); Mean Corpuscular Volume 97.7 fL (80.0-98.0); Mean Platelet Volume 11.4 fL (9.4-12.4); Monocytes Absolute Auto 0.6 X10*3/uL (0.1-1.2); Monocytes Percent Auto 8.8 % (2-11); Neutrophils Absolute Auto 3.6 x10*3/uL (2.0-8.3); Neutrophils Percent Auto 49.5 % (45-73); Platelet Count 234 X10*3/uL (160-400); Red Blood Count 3.44 X10*6/uL (4.60-5.80); Red Cell Distribution Width 11.6 % (11.0-16.0); White Blood Count 7.3 X10*3/uL (4.8-10.8)
[2021-09-14 05:28] LABS: Anion Gap 12 (12-20); Blood Urea Nitrogen 6 mg/dL (9-16); Carbon Dioxide 26 mmol/L (22-29); Chloride 97 mmol/L (96-108); Creatinine Clr Calc Pharmacy 136.4; Estimated Glomerular Filt Rate > 60; Glucose Random 115 mg/dL (60-115); Magnesium 1.7 mg/dL (1.6-2.6); Potassium 3.7 mmol/L (3.3-5.1); Sodium 131 mmol/L (135-145)
--- NOTE | 2021-09-14 09:01 | MHC.CM.PN ---
CM attempted to speak with Patient at [phone], but reached Patient's Sister/HCP/Morena instead(Morena's # is [phone]) and addressed SCHROEDER with her (original will be mailed to Morena and a copy will be placed on the chart).Patient was recently dc from [facility] and had an upcoming appointment with [facility] for OP services. Now, the goal for dc is home/[facility]DET[facility], pending Care Team consult.CM has initiated and will follow for dc planning.Patient typically lives in a house with his Mother; he uses no DME, but Morena indicated that his gait is unsteady at times. Patient has been seen on an urgent basis at [facility], but his initial PCP appointment there is on 2020. Patient's Brother/Mehul is the Alternate HCP.
[2021-09-14] MEDS: Thiamine HCL 100 MG TABLET PO (09:12)
[2021-09-14] MEDS: Folic Acid 1 MG TABLET PO (09:12)
[2021-09-14] MEDS: Gabapentin 300 MG CAPSULE PO (09:12)
[2021-09-14 11:13] VITALS: BP 151/86; PULSE 70; RESP 16; TEMP 36.8; O2SAT 99
[2021-09-14] MEDS: Venlafaxine HCl ER 37.5 MG CAP.ER.24H PO (11:19)
[2021-09-14 12:28] VITALS: BP 167/83; PULSE 70
[2021-09-14] MEDS: NIFEdipine ER 30 MG TAB.ER.24 PO (12:28)
[2021-09-14 12:57] LABS: Anion Gap 16 (12-20); Carbon Dioxide 25 mmol/L (22-29); Chloride 98 mmol/L (96-108); Potassium 4.7 mmol/L (3.3-5.1); Sodium 134 mmol/L (135-145)
[2021-09-14 13:19] LABS: TSH reflex Free T4 1.67 uIU/mL (0.32-4.0)
--- NOTE | 2021-09-14 14:10 | MHC.RECOVSUP ---
? Reason for consult:Recovery Support o Current location:ED 12 o Identified substance use concern:ETOH, opiates,Benzo's - Support ? Intervention: o Community resources provided o Harm reduction discussion ? Plan: o Patient to follow up with [facility] after discharge ? Additional information:Patient recently discharged from [facility] detox, pt. in recovery from opiates, recently used Xanex. Spoke to patient about MAT and had a harm reduction conversation. Pt. refused to return to a detox. Referred patient to [facility].
--- NOTE | 2021-09-14 14:36 | MHC.CM.PN ---
Patient has been medically cleared for dc to home today, no services.
--- NOTE | 2021-09-14 15:13 | CONS_ITS ---
DATE OF SERVICE: 09/14/2021 HISTORY OF PRESENT ILLNESS: I was asked to see the patient to assist in evaluation and management of patient's severe hypertension with hypertensive urgency and a blood pressure of 185/110 in the emergency room. Summary, he is a 61-year-old gentleman with a history of chronic back pain, maintained on analgesics, apparently has been recently getting tapered off some of his pain medications and benzodiazepines. The patient states that at home, his brother checks his home blood pressure readings and he was checking his blood pressure reading, and noted it to be markedly elevated. So he came to the emergency room. He had no symptoms. No chest pain, palpitation, tremors, or flushing episodes. He tells me that he has not had high blood pressure in the past. In fact, he states that at home his blood pressures was typically around 130/80 range. He denies taking any stimulants, doing any cocaine. PAST MEDICAL HISTORY: Notable for alcohol abuse, anxiety, benzodiazepine disorder and he is getting tapered off, neuropathy, opioid dependence, as mentioned he had traumatic brain injury in the past. MEDICATIONS: His medications on admission include clonidine 0.1 at bedtime, along with folate, Neurontin, ibuprofen, thiamine, and venlafaxine. In the emergency room, he received IV labetalol times twice. His blood pressures come down to 120/80 early this morning, now starting to go up again, most recent blood pressure 138/90. SOCIAL HISTORY: He is an ex-alcohol user. Denies cigarettes. He has a history of substance abuse as mentioned above with opiates and benzodiazepines. ALLERGIES: NOTED IN THE MAR. FAMILY HISTORY: Notable for hypertension. REVIEW OF SYSTEMS: As noted above. PHYSICAL EXAMINATION: VITAL SIGNS: As mentioned, blood pressure was as high as 210/115. Blood pressure came down to 120/80 and now most recently is 138/86. HEAD: Atraumatic and normocephalic. NECK: Supple. Mucous membranes are moist. LUNGS: Clear. CARDIAC: Regular rate and rhythm without rub. ABDOMEN: Soft, nontender. Good bowel sounds. No abdominal bruits. No CVA tenderness. EXTREMITIES: No edema. LABORATORY DATA: Hemoglobin 11.6, hematocrit 33.6, white blood cell count 7.3. Sodium 131, potassium , chloride 97, bicarb 26, BUN 6, creatinine 0.64. IMPRESSION: A 61-year-old gentleman with a history of recent detox and tapering off his benzodiazepines, who was admitted with hypertensive urgency with markedly elevated blood pressure, but no evidence of target organ damage. 1. Severe hypertension. It is unclear what precipitated this. May be the ongoing detoxification and coming off his benzodiazepines and opiates, he is having rebound. Other possibilities need to be ruled out including secondary cause of hypertension such as hypo or hyperthyroidism, underlying pheochromocytoma as well as renovascular mediated hypertension. The workup for all these abnormalities can be done as an outpatient, but if he is admitted, we will do it as an inpatient. SUGGESTIONS: At this time include, we will send blood and urine tests to rule out pheochromocytoma. Also check renin aldosterone ratio. We will start him on Procardia 30 mg once a day starting this morning and titrate up the blood pressure medications as needed, which can be done as an outpatient. Continue to monitor home blood pressure readings. If he is admitted, we can also get Doppler of the renal arteries. We will follow the patient closely with the team. MD PAUL Ahumada/LUNA / [phone]
--- NOTE | 2021-09-16 15:13 | PM.DS ---
DS: Providers Provider Date of Service: 09/14/21 Date of admission: 09/13/21 23:15 Primary care physician: Unknown Physician Consults: 09/14/21 08:50 Consult to Nephrology Routine Consulting Provider: Vj Naik Reason for consultation: htn urgency Has provider been notified: No 09/14/21 10:45 Consult to Care Team Routine Comment: anxiety Reason for consultation: anxiety Has provider been notified: No DS: Diagnosis Discharge Diagnosis (1) Hypertension, uncontrolled: Status: Acute (2) Hypomagnesemia: Status: Acute (3) Moderate benzodiazepine use disorder: Status: Acute DS: Summary Hospital Course Hospital Course: Date of service and discharge:09/14/21. 89-year-old male with history of? back injury on opioids, appearing repaired addiction and benzo diction recently discharged from detox rehab presents to the hospital hypertension.? patient reports that he has a blood pressure monitor at home and ever since he came out of rehab he was told to check his blood pressure daily abdomen showed he is not withdrawing.? He reports that he was feeling off today, overall generally not well subjective blood pressure and was? 177/ 111 as well as 185/110.? His sisters at bedside also corroborated his story.? Patient reports lightheadedness, he reports? a right-sided pounding like intermittent chest pain that lasted few seconds and resolved spontaneously.? He also had a headache earlier that has not resolved, he has chronic tingling in his hands and toes from history of he otherwise denies any palpitations, no abdominal pain nausea or vomiting, no diarrhea constipation, no urinary symptoms and no lower extremity edema. ?he reports that his blood pressure at home usually runs between 130-140 systolic, and 80 to 90s diastolic. on arrival to the ED? patient's BP was initially 182/98 that went up to 211/107, patient was given 2 doses of 10 mg of IV labetalol with blood pressure improving to 164/102.? Patient appears anxious about his blood pressure he keeps checking monitor. ? Labs are significant for WBC count 7.9, hemoglobin of 13.3, sodium? of 131, magnesium of 1.3, UDS positive for benzodiazepines, alcohol negative.? Patient adamantly denies using any? benzodiazepines in the last 12 daysand has not drank alcohol for over 1 month.? Sister at bedside confirmed versus and reports that they have been with him for 24 hours a day? and have not seen him use alcohol or any benzodiazepines,? Or opioids. Hospital course: patient came to the hospital because of uncontrolled hypertension: Which seems to be improving after receiving small dose of labetalol overnight. Subsequently seen by Nephro: recommended to add Procardia( blood pressure medication), patient is to follow-up out patiently with Nephrology and PCP- for further workup of secondary hypertension including renal dopper -for renal arteries/ultrasound. above was discussed with the patient in detail and he understand in agreement with the above plan. Nephrology: Dr Nova arrange their own appointment. has anxiety but seems fine at present, on clonidine at home, care team evaluation saw and patient info given -needs to follow up with outpatient psych provider. Time Spent with Patient Time attestation: Total time spent providing and/or coordinating discharge services: Discharge coordination time: Greater than 30 minutes Quality: Stroke Does the patient have a stroke diagnosis?: No Physical Exam Vital Signs: Vital Signs: Last Vital Signs Temp 98.2 F 09/14/21 11:13 Pulse 70 09/14/21 12:28 Resp 16 09/14/21 11:13 BP 167/83 H 09/14/21 12:28 Pulse Ox 99 09/14/21 11:13 BMI result Body Mass Index 25.7 Appearance: Alert.? Oriented X3.? not in distress.? Eyes: Pupils equal, round and reactive to light.? Sclera nonicteric.? ENT: Pharynx normal.? Moist mucous membranes. cvs: rrr, [id number] , no murmur res: clear to auscultation ,no rhonchii or wheezing abd: no rebound or guarding ,nt, bs present. ext pulses present , no cyanosis ,Gait well balanced well coordinated. neuro: axo3 , nonfocal. DS: Data Additional Comments Additional comments: head ct :IMPRESSION: Normal CT scan of the head. Discharge Plan Discharge Patient Disposition: Home, Self-Care Discharge Diagnosis: uncontrolled hypertension Referrals: Vj Naik MD [Physician] - 1 Week (follow up outpatiently) Physician,Alonzo J [Primary Care Provider] - 1 Week Discharge Medications: New nifedipine 30 mg Tablet Extended Release 24hr 30 mg PO DAILY Qty: 30 RF: 0 Continued venlafaxine 37.5 mg capsule,extended release 24hr 1 cap PO DAILY RF: 0 clonidine HCl 0.1 mg tablet 1 tab PO BEDTIME RF: 0 thiamine HCl (vitamin B1) [Vitamin B-1] 100 mg tablet 1 tab PO DAILY RF: 0 ibuprofen 200 mg Tablet 200 mg PO Q6H PRN (Reason: Pain (Scale Score 1-3)) RF: 0 gabapentin 300 mg capsule 1 cap PO BID RF: 0 folic acid 1 mg tablet 1 tab PO DAILY RF: 0 Discharge Orders: Discharge Order (Routine); Ordered 09/14/21 Ordered By: Brandin Ferrell Diet: advance to usual diet, low fat, low cholesterol and low salt diet Activity on Discharge: As tolerated Stand Alone Forms: Patient Portal Discharge page Care Plan Goals: patient came to the hospital because of uncontrolled hypertension: Which seems to be improving after receiving small dose of labetalol overnight. Subsequently seen by Nephro: recommended to add Procardia( blood pressure medication), patient is to follow-up out patiently with Nephrology and PCP- for further workup of secondary hypertension. above was discussed with the patient in detail and he understand in agreement with the above plan. has anxiety but seems fine at present, on clonidine at home, care team evaluation saw and patient info given -needs to follow up with outpatient psych provider. Health Concerns: As above. Plan of Treatment: As above. Assessment: As above. Patient Instructions: Chronic Hypertension (GEN) Discharge Date/Time: 09/14/21 15:25
[2021-09-22 15:46] LABS: Aldosterone/Renin Ratio 6.7 Ratio (0.9-28.9); Plasma Renin Activity 0.45 ng/mL/h (0.25-5.82)
[2021-09-23 17:42] LABS: Catecholamine Frac, Total 555 pg/mL
== END 2021-09-14 15:25 | disposition home or self-care (01) ==
LOC: HO.ED 21:41 → HO.EDOVER 23:36
PROVIDERS: Internal Medicine Nephrology; Admitting Provider Internal Medicine; Emergency Provider Emergency Medicine; Visit Provider Internal Medicine
DX: E83.42 Hypomagnesemia (principal); I10 Essential (primary) hypertension; R51.9 Headache, unspecified; M54.9 Dorsalgia, unspecified; G62.9 Polyneuropathy, unspecified; F10.20 Alcohol dependence, uncomplicated; F13.20 Sedative, hypnotic or anxiolytic dependence, uncomplicated; F11.20 Opioid dependence, uncomplicated; Z20.822 Contact with and (suspected) exposure to COVID-19; Z79.899 Other long term (current) drug therapy
CPT/HCPCS: 36415; 70450; 80048; 80051; 80076; 80307; 82077; 82088; 82384; 83690; 83735; 84443; 84484; 85025; 87635; 93005; 96361; 96365; 96366; 96372; 96375; 96376; 99219; 99284; 99291; J1650; J2060; J3475